=== PATIENT | female | born 1985 | race African-American/Black ===

== ENCOUNTER 2017-04-22 19:08 | Emergency (ER) | payer OTHER ==
[~2017-04-22] VITALS: Ht 167.6 cm; Wt 69.0 kg
[~2017-04-22 19:08] MED LIST: A-B OTIC EAR DR15 ML OT; AUGMENTIN 875875 MG PO; BIOTIN-D1 GM PO; CIPROFLOXACIN500 M1 PO; CITALOPRAM; FLAGYL500 MG PO; FLEXERIL PO; HYDROCODONE-AC120 ML PO; HYDROCODONE-AP1 EAC6 PO; KEFLEX500 MG PO; NOHOMEMEDICATIONS; NORCO 5-325 TA1 EACH PO; ONDANSETRON HCL4 M2 PO; PHENERGAN 25 MG25 M1 PO; PRENATAL PO; TORADOL 10 MG T10 MG PO; ZOFRAN ODT4 M1 PO; ZOFRAN ODT4 MG PO; ZOFRAN4 MG PO
[2017-04-22 19:28] LABS: URINE BILIRUBIN 1+ (Negative); URINE BLOOD NEGATIVE (Negative); URINE COLOR YELLOW; URINE GLUCOSE-RANDOM* TRACE (Negative); URINE KETONES 1+ (Negative); URINE NITRITE NEGATIVE (Negative); URINE PROTEIN (DIPSTICK) TRACE (Negative); URINE SPECIFIC GRAVITY 1.025 (1.003-1.035)
[2017-04-22 19:32] LABS: ICTOTEST (BILI CONFIRMATORY) Negative (Negative)
[2017-04-22 20:14] LABS: ABSOLUTE NEUTROPHILS 4.3 thou/uL (1.4-8.2); BASOPHILS 0.9 % (0.0-2.0); EOSINOPHILS 0.9 % (0.0-3.0); HEMATOCRIT 41.7 % (37.0-47.0); HEMOGLOBIN 13.4 gm/dL (12.0-15.0); LYMPHOCYTES 28.3 % (24.0-44.0); MANUAL DIFF NO; MCH 28.3 pg (26.0-34.0); MCHC 32.1 g/dL (28.0-37.0); MONOCYTES 8.6 % (1.0-8.0); PLATELET COUNT 227 thou/uL (150-400); POLYS 61.3 % (36.0-66.0); RBC 4.73 mil/uL (4.20-5.00); RDW 14.3 % (10.5-14.5); WBC 6.9 thou/uL (4.0-11.0)
[2017-04-22 20:18] LABS: ANION GAP 11 mmol/L (7-16); BUN 11 mg/dL (7-18); CALCIUM 9.1 mg/dL (8.5-10.1); CHLORIDE 104 mmol/L (98-107); CO2 25 mmol/L (21-32); CREATININE 0.8 mg/dL (0.6-1.0); GLUCOSE 95 mg/dL (74-106); POTASSIUM 3.8 mmol/L (3.5-5.1); SODIUM 140 mmol/L (136-145)
[2017-04-22 20:24] LABS: ALBUMIN 3.9 g/dL (3.4-5.0); ALKALINE PHOSPHATASE 57 U/L (46-116); DIRECT BILIRUBIN < 0.1 mg/dL (<0.1-0.3); SGOT 17 U/L (15-37); SGPT 13 U/L (30-65); TOTAL BILIRUBIN 0.3 mg/dL (<0.1-1.0); TOTAL PROTEIN 7.9 g/dL (6.4-8.2)
[2017-04-22] MEDS ORDERED: XANAX1 MG PO (20:34)
[2017-04-22] MEDS ORDERED: ADDERALL XR 3030 MG PO (20:34)
[2017-04-22] MEDS ORDERED: IBUPROFEN 600600 M1 PO (21:52)
[2017-04-22] MEDS ORDERED: ONDANSETRON HCL4 M2 PO (21:52)
[2017-04-22] MEDS ORDERED: BENTYL 20 MG TA20 M1 PO (21:52)
[2017-04-22 22:10] VITALS: BP 145/97
== END 2017-04-22 22:12 | disposition home or self-care (01) ==
LOC: ER 19:08
PROVIDERS: Nurse Practitioner
DX: R10.31 Right lower quadrant pain (principal); R10.32 Left lower quadrant pain; R11.0 Nausea

== ENCOUNTER → 2017-06-11 | Outpatient (CLI) | payer OTHER ==
[~2017-06-11] VITALS: Ht 167.6 cm; Wt 68.5 kg
[~2017-06-11] MED LIST changes: +ADDERALL XR 3030 MG PO; +BENTYL 20 MG TA20 M1 PO; +IBUPROFEN 600600 M1 PO; +XANAX1 MG PO
--- NOTE | ~2017-06-11 | P ---
[facility] [place] [address] [place] [address] PROCEDURE REPORT Name: HANHSELMAMarii PALMA Room #: [facility]#: [id number] Admission: 06/11/17 Attend Phys: James Wyatt MD Discharge: Date of : 89 Report #: [id number] THIS REPORT FOR: //name// CC: SERGE physician/PCP James Wyatt DATE OF SERVICE: 06/11/2017 BRIEF HISTORY: The patient is a 32-year-old woman with lower abdominal pain. She also has had intermittent rectal bleeding. In addition, she has a family history of Crohn's disease. She had a recent ER visit with a negative CT and unremarkable labs. Symptoms have persisted. She reports she has lost over 20 pounds. PREOPERATIVE DIAGNOSES: Abdominal pain, weight loss, and rectal bleeding. POSTOPERATIVE DIAGNOSIS: Internal hemorrhoids. MEDICATIONS: Deep sedation with propofol per anesthesia. SPECIMEN: None. ESTIMATED BLOOD LOSS: None. PROCEDURE: Colonoscopy to cecum and terminal ileum. FINDINGS: Prior to propofol sedation, procedure of colonoscopy discussed with the patient as well as potential risks, benefits, and complications. She indicates she understands and desires to proceed. With the patient in left lateral decubitus position, digital examination was completed, which revealed no abnormalities. Subsequently, the [employer] video colonoscope was introduced into the rectum and advanced under direct vision to the cecum. Done with minimal difficulty. The cecum was identified by the ileocecal valve and the appendiceal orifice. I was able to visualize the distal segment of terminal ileum and actually visualized about 20 cm of the terminal ileum, which was normal. There was no evidence of inflammatory bowel disease. At that point, the scope was slowly withdrawn and careful circumferential views obtained including retroflexing the scope in the ascending colon. Upon slow withdrawal of the scope, the prep was noted to be excellent. The mucosa was within normal limits, normal vascular pattern, and normal light reflex. As we withdrew the scope, no inflammatory or neoplastic lesions were seen. She had normal colonic mucosa throughout. The scope was further withdrawn and no abnormalities were seen. The scope was withdrawn in the rectum. No abnormalities were seen until upon retroflexion, internal hemorrhoids were seen without bleeding. No other abnormalities were seen. Scope was withdrawn. [facility] [address] [place] [address] PROCEDURE REPORT Name: HANHSELMA MINERVA Room #: REG [facility].#: [id number] Admission: 06/11/17 Attend Phys: James Wyatt MD Discharge: Date of : 89 Report #: [id number] patient tolerated the procedure well. CONDITION OF THE PATIENT UPON DISCHARGE: Following procedure, the patient drowsy, aroused, conversant and will be discharged to home when fully ambulatory. INSTRUCTIONS TO THE PATIENT AND FAMILY AT THE TIME OF DISCHARGE: I do not find a lesion to explain her abdominal pain and weight loss. Specifically, there was no evidence of inflammatory bowel disease. She does have internal hemorrhoids likely source of bleeding. We will have her use Anusol-HC suppositories. High fiber diet would be beneficial. We will make arrangements for additional labs including thyroid function as well as a screen for celiac disease. She may continue dicyclomine. She should return to see me in followup if her symptoms do not resolve. This is the patient's first colonoscopy, withdrawal time from the cecum was 13 minutes 36 seconds. <ELECTRONICALLY SIGNED> By: James Wyatt MD 06/13/17 [id number] [id number] James Wyatt MD /nt
== END | disposition home or self-care (01) ==
LOC: GI 07:05
DX: K64.8 Other hemorrhoids (principal); R63.4 Abnormal weight loss; F90.9 Attention-deficit hyperactivity disorder, unspecified type
CPT/HCPCS: 62110; 62900

== ENCOUNTER 2019-02-21 10:58 | Emergency (ER) | payer OTHER ==
[~2019-02-21] VITALS: Ht 167.6 cm; Wt 81.7 kg
[2019-02-21] MEDS ORDERED: ZYRTEC10 M2 PO (11:23)
[2019-02-21] MEDS ORDERED: ZANTAC 150MG T150 MG PO (11:23)
[2019-02-21] MEDS ORDERED: PREDNISONE 20 M20 MG PO (11:23)
[2019-02-21 11:33] VITALS: BP 134/92
== END 2019-02-21 11:34 | disposition home or self-care (01) ==
LOC: ER 10:58
DX: L50.9 Urticaria, unspecified (principal); F90.9 Attention-deficit hyperactivity disorder, unspecified type